=== PATIENT | male | born 1975 | race Caucasian/White ===

== ENCOUNTER 2019-09-06 19:23 | Emergency (ER) | payer MEDICAID ==
[~2019-09-06] VITALS: Ht 180.3 cm; Wt 79.4 kg
[~2019-09-06 19:23] MED LIST: AMPH30TA3 PO
[2019-09-06] MEDS ORDERED: LISD70CA PO (20:27)
--- NOTE | 2019-09-06 21:12 | NUR ---
Patient left without being seen by ER physician. ER MD aware. Patient in stable condition.
== END 2019-09-06 21:16 | disposition left against medical advice (07) ==
LOC: ER 19:25
DX: Z53.21 Procedure and treatment not carried out due to patient leaving prior to being seen by health care provider (principal)
CPT/HCPCS: A4663